=== PATIENT | male | born 1975 | race Caucasian/White ===

== ENCOUNTER 2017-02-26 10:53 | Emergency (ER) | payer BC ==
[2017-02-26 11:29] LABS: #Basophils 0.1 thou/uL (0.0-0.2); #Eosinphils 0.2 thou/uL (0.0-0.7); #Lymphocytes 2.4 thou/uL (1.20-3.40); #Monocytes 0.6 thou/uL (0.11-0.59); #Neutrophils 3.5 thou/uL (1.40-6.50); %Basophils 1.2 % (0.0-1.0); %Eosinophils 3.6 % (0.0-10.0); %Lymphocytes 35.5 % (21.0-51.0); %Monocytes 8.1 % (0.0-10.0); Hematocrit 42.4 % (42.0-52.0); Mean Platelet Volume 7.7 fL (7.4-10.4); Red Blood Cell (RBC) Count 4.66 mill/uL (4.70-6.10); White Blood Cell (WBC) Count 6.8 thou/uL (4.8-10.8)
--- NOTE | 2017-02-26 11:41 | RAD ---
RADIOGRAPH CHEST SINGLE VIEW: History: Palpitations. FINDINGS: Lungs are clear. There is no effusion or pneumothorax. Cardiac silhouette is normal in size. IMPRESSION: No acute process. POS: [facility]
[2017-02-26 11:55] LABS: Calcium 9.6 mg/dL (7.8-10.44); Chloride 103 mmol/L (98-107)
[2017-02-26 11:56] LABS: Globulin 3.6 g/dL (2.4-3.5); Protein, Total 8.3 g/dL (6.0-8.3)
[2017-02-26 11:57] LABS: Anion Gap 15 mmol/L (10-20); Carbon Dioxide 24 mmol/L (22-29)
[2017-02-26 11:58] LABS: Bilirubin, Total 0.5 mg/dL (0.2-1.2)
[2017-02-26 11:59] LABS: Alkaline Phosphatase 71 U/L (40-150); Calc. Creatinine Clearance 0 mL/min (70-130); Estimated GFR-MDRD 83
[2017-02-26 12:00] LABS: BUN (Urea Nitrogen) 9 mg/dL (8.9-20.6)
[2017-02-26 12:01] LABS: AST (SGOT) 22 U/L (5-34)
[2017-02-26 12:02] LABS: ALT (SGPT) 23 U/L (8-55); CK (CPK) 109 U/L (30-200); Lipase 34 U/L (8-78)
[2017-02-26 12:06] LABS: Troponin I Less than 0.010 ng/mL (< 0.028)
== END 2017-02-26 12:43 | disposition home or self-care (01) ==
LOC: ERS 10:53
DX: R00.2 Palpitations (principal)
CPT/HCPCS: 71010; 80053; 82553; 83690; 83880; 84484; 85025; 93005

== ENCOUNTER 2017-02-26 15:02 | Emergency (ER) | payer BC ==
[2017-02-26] MEDS ORDERED: ISOVUE-370 76%-LOCM 1 ML ONE (15:25)
--- NOTE | 2017-02-26 17:32 | ULT ---
GALLBLADDER ULTRASOUND: 02/26/17 INDICATION: Right upper quadrant pain. FINDINGS: No focal hepatic lesion. There is evidence of cholelithiasis. Gallbladder wall is within normal limit s of size. Brown's sign is reported as negative. Common duct is normal at 3 mm. No significant ascit es. IMPRESSION: Cholelithiasis. No sonographic evidence to confirm acute cholecystitis. Correlate clinically. POS: [facility]
--- NOTE | 2017-02-26 18:11 | CT ---
CTA CHEST WITH 3D VOLUME RENDERING 02/26/17 CLINICAL HISTORY: Dyspnea. FINDINGS: There is no evidence of a large, central filling defect. A generalized low density contrast bolus of the segmental and subsegmental pulmonary arterial branches, distally, does decrease sensitivity for p otential small peripheral emboli. There is no lobar consolidation. Mild volume loss seen within each lung. There is no pleural effusion or pneumothorax. Thoracic aorta is normal in caliber. Incidental n ote of cholelithiasis. IMPRESSION: 1. No large, central pulmonary embolus. 2. Incidental note of cholelithiasis. 3. Mild atelectasis of the bilateral pulmonary parenchyma. POS: C
== END 2017-02-26 19:07 | disposition home or self-care (01) ==
LOC: ERS 15:02
DX: K80.20 Calculus of gallbladder without cholecystitis without obstruction (principal); R42 Dizziness and giddiness
CPT/HCPCS: 36415; 71010; 71275; 76705; 80053; 82553; 83690; 83880; 84484; 85025; 85379; 93005; 96360